=== PATIENT | female | born 1945 | race Caucasian/White ===

== ENCOUNTER 2020-04-13 17:33 | Inpatient (IN) | payer OTHER, SELFPAY ==
[~2020-04-13] VITALS: Ht 160 cm; Wt 86.7 kg
[2020-04-13 17:35] VITALS: Ht 160 cm; Wt 86.7 kg
[2020-04-13 18:17] LABS: microscopic required? YES; urine erythrocyte NEGATIVE (NEGATIVE)
[2020-04-13 18:44] LABS: BASOPHIL % 0.4 % (0-2); PLATELET COUNT 190 x10^3mcL (130-400); RED CELL DISTRIBUTION WIDTH 12.8 % (11.5-14.5)
[2020-04-13 18:53] LABS: CALCIUM 8.4 mg/dL (8.5-10.1); CARBON DIOXIDE 25.7 mmol/L (21-32); CHLORIDE SERUM 98 mmol/L (98-107); CREATININE SERUM 1.5 mg/dL (0.6-1.0); GLUCOSE SERUM 103 mg/dL (74-106); SODIUM SERUM 133 mmol/L (136-145)
[2020-04-13 18:57] LABS: ALBUMIN 3.5 g/dL (3.4-5.0); ALKALINE PHOSPHATASE 57 U/L (46-116); ALT/SGPT 21 U/L (14-59); AST/SGOT 19 U/L (15-37); BILIRUBIN TOTAL 0.96 mg/dL (0.20-1.00); LACTIC DEHYDROGENASE (LDH) 254 U/L (100-190); TOTAL PROTEIN, SERUM 7.6 g/dL (6.4-8.2)
[2020-04-13 22:28] VITALS: BP 135/88
[2020-04-13 23:26] VITALS: BP 135/88
[2020-04-14 06:17] VITALS: BP 127/78
[2020-04-14 07:02] LABS: BASOPHIL % 0.3 % (0-2); PLATELET COUNT 184 x10^3mcL (130-400); RED CELL DISTRIBUTION WIDTH 12.8 % (11.5-14.5)
[2020-04-14 07:24] LABS: CALCIUM 8.2 mg/dL (8.5-10.1); CARBON DIOXIDE 27.8 mmol/L (21-32); CHLORIDE SERUM 102 mmol/L (98-107); CREATININE SERUM 1.2 mg/dL (0.6-1.0); GLUCOSE SERUM 105 mg/dL (74-106); MAGNESIUM 2.2 mg/dL (1.8-2.4); POTASSIUM SERUM 3.8 mmol/L (3.5-5.1); SODIUM SERUM 138 mmol/L (136-145)
[2020-04-14 08:41] VITALS: BP 108/58
[2020-04-14 12:10] VITALS: BP 131/77
[2020-04-14 16:07] VITALS: BP 142/74
[2020-04-14 19:52] VITALS: BP 117/66
[2020-04-15 05:09] VITALS: BP 140/81
[2020-04-15 07:17] LABS: BASOPHIL % 0.4 % (0-2); PLATELET COUNT 208 x10^3mcL (130-400); RED CELL DISTRIBUTION WIDTH 12.5 % (11.5-14.5)
[2020-04-15 07:36] LABS: CALCIUM 8.2 mg/dL (8.5-10.1); CARBON DIOXIDE 28.6 mmol/L (21-32); CHLORIDE SERUM 102 mmol/L (98-107); CREATININE SERUM 1.1 mg/dL (0.6-1.0); GLUCOSE SERUM 99 mg/dL (74-106); MAGNESIUM 2.2 mg/dL (1.8-2.4); PHOSPHOROUS 2.5 mg/dL (2.5-4.9); POTASSIUM SERUM 3.8 mmol/L (3.5-5.1); SODIUM SERUM 138 mmol/L (136-145)
[2020-04-15 08:37] VITALS: BP 107/60
[2020-04-15 12:19] VITALS: BP 110/63
[2020-04-15 16:03] VITALS: BP 106/51
[2020-04-15 20:10] VITALS: BP 105/60
[2020-04-16 04:49] VITALS: BP 114/57
[2020-04-16 07:55] LABS: CALCIUM 8.1 mg/dL (8.5-10.1); CARBON DIOXIDE 28.1 mmol/L (21-32); CHLORIDE SERUM 106 mmol/L (98-107); GLUCOSE SERUM 88 mg/dL (74-106); MAGNESIUM 2.2 mg/dL (1.8-2.4); PHOSPHOROUS 2.8 mg/dL (2.5-4.9); POTASSIUM SERUM 4.1 mmol/L (3.5-5.1); SODIUM SERUM 140 mmol/L (136-145)
[2020-04-16 07:58] VITALS: BP 139/76
[2020-04-16 08:17] LABS: BASOPHIL % 0.5 % (0-2); PLATELET COUNT 207 x10^3mcL (130-400); RED CELL DISTRIBUTION WIDTH 12.9 % (11.5-14.5)
[2020-04-16] MEDS ORDERED: LEVAQUIN500 M1 PO (10:56)
[2020-04-16 12:51] VITALS: BP 141/84
[2020-04-16 12:53] VITALS: BP 139/76
== END 2020-04-16 14:43 | disposition home or self-care (01) | DRG 871 ==
LOC: ED 17:33 → DU 20:09 → EDBEDREQ 20:10 → DU 22:12
PROVIDERS: Specialist; ADMIT Hospitalist; ATTEND Hospitalist
DX: A41.9 Sepsis, unspecified organism (principal); J18.9 Pneumonia, unspecified organism; N39.0 Urinary tract infection, site not specified; I10 Essential (primary) hypertension; J45.909 Unspecified asthma, uncomplicated; Z20.828 Contact with and (suspected) exposure to other viral communicable diseases; Z88.5 Allergy status to narcotic agent; Z88.8 Allergy status to other drugs, medicaments and biological substances; Z90.710 Acquired absence of both cervix and uterus; Z79.899 Other long term (current) drug therapy; Z79.2 Long term (current) use of antibiotics
CPT/HCPCS: 36600; 83880; 85378; 87804; G0378; J0456; J0696; J3535; J7030; Q0092; Q9967; U0003-CS